=== PATIENT | female | born 1990 | race Asian ===

== ENCOUNTER 2020-01-27 13:35 | Emergency (ER) | payer SELFPAY ==
[~2020-01-27] VITALS: Ht 167.6 cm; Wt 54.4 kg
[2020-01-27 13:37] VITALS: Ht 167.6 cm; Wt 54.4 kg
[2020-01-27 14:43] VITALS: BP 115/62
== END 2020-01-27 15:15 | disposition home or self-care (01) ==
LOC: ED 13:35
DX: B34.9 Viral infection, unspecified (principal)